=== PATIENT | female | born 1970 | race American Indian/Alaskan Native ===

== ENCOUNTER 2017-12-02 07:46 | Emergency (ER) | payer BC ==
[2017-12-02 08:22] LABS: Basophils % (Auto) 0.1 % (0.0-1.8); Hematocrit 41.5 % (30.3-42.9); Hemoglobin 13.5 gm/dl (10.1-14.3); Lymphocytes # (Auto) 1.1 K/mm3 (1.2-5.4); Lymphocytes % (Auto) 8.7 % (13.4-35.0); Mean Corpuscular HGB Conc 33 % (30-34); Mean Corpuscular Hemoglobin 27 pg (28-32); Mean Corpuscular Volume 82 fl (79-97); Monocytes % (Auto) 7.8 % (0.0-7.3); Platelet Count 320 K/mm3 (140-440); Red Blood Count 5.06 M/mm3 (3.65-5.03); Red Cell Distribution Width 15.1 % (13.2-15.2)
[2017-12-02 08:36] LABS: Alanine Aminotransferase 12 units/L (7-56); Albumin 4.3 g/dL (3.9-5); BUN/Creatinine Ratio 20; Blood Urea Nitrogen 20 mg/dL (7-17); Calcium 10.2 mg/dL (8.4-10.2); Hemolysis Index 11; Lipase 26 units/L (13-60)
[2017-12-02] MEDS ORDERED: LOMOTIL PO ONE (10:28)
[2017-12-02] MEDS ORDERED: NACL 0.9% 1000 ML 1,000 ML IV ONE ×2 (10:29→14:00)
--- NOTE | 2017-12-02 11:45 | Cat Scan Report ---
CT ABDOMEN PELVIS WITH CONTRAST: HISTORY: Right lower quadrant abdominal pain. COMPARISON: none. TECHNIQUE: Helical CT in 1.25mm intervals following IV contrast. Sagittal and coronal reconstructions. FINDINGS: Lung bases: Normal. Liver: Normal. Biliary system: Multiple small calcified gallstones are identified. No biliary dilatation or inflammation. Pancreas: Normal. Spleen: Normal. Kidneys/ureters/bladder: Normal. Adrenal glands: Normal. Aorta: Normal. Intestines: Bowel loops are nondilated but fluid filled. This may represent gastroenteritis. No focal inflammation is identified. Appendix: Normal. Pelvic viscera: The uterus is small in size or hysterectomy has been performed. No adnexal cyst or mass is identified. Ascites: Small to medium pelvic ascites. Adenopathy: None. Musculoskeletal: Normal. IMPRESSION: Normal appendix. No clear explanation for right lower quadrant abdominal pain. Fluid-filled bowel loops which could be related to gastroenteritis. Cholelithiasis. Small pelvic ascites.
[2017-12-02 13:01] VITALS: BP 110/71
[2017-12-02] MEDS ORDERED: ZOFRAN IV ONE (14:05)
--- NOTE | 2017-12-02 14:23 | Emergency Department Report ---
HPI - General Chief Complaint: Abdominal Pain Time Seen by Provider: 12/02/17 10:28 ED Past Medical Hx - Past Medical History Previous Medical History?: Yes Hx GERD: Yes Additional medical history: stomach ulcers - Surgical History Past Surgical History?: Yes Additional Surgical History: Myomectomy, Tubaligation and partial hysterectomy - Social History Smoking Status: Former Smoker - Medications Home Medications: Home Medications Medication Instructions Recorded Confirmed Last Taken Type Dicyclomine HCl 20 mg PO BID #30 tablet 12/02/17 Unknown Rx Diphenoxylate/Atropine [Lomotil] 1 tab PO Q4H PRN #20 tablet 12/02/17 Unknown Rx Promethazine [Phenergan TAB] 25 mg PO Q8HR PRN 10 Days #20 tab 12/02/17 Unknown Rx ED Review of Systems ROS: Stated complaint: N/V/D Other details as noted in HPI Physical Exam - Physical Exam Vital Signs: Vital Signs 12/02/17 12/02/17 12/02/17 07:55 08:09 08:10 Temperature 97.8 F Pulse Rate 110 H 90 82 Respiratory 20 17 19 Rate Blood Pressure 116/76 O2 Sat by Pulse 100 98 Oximetry 12/02/17 12/02/17 12/02/17 08:20 08:30 08:41 Temperature 98 F Pulse Rate 88 84 Respiratory 16 24 14 Rate Blood Pressure 106/72 112/73 O2 Sat by Pulse 97 99 Oximetry 12/02/17 12/02/17 12/02/17 08:45 09:00 09:10 Temperature Pulse Rate 98 H 91 H 90 Respiratory 22 23 19 Rate Blood Pressure 116/81 118/79 118/79 O2 Sat by Pulse 100 Oximetry 12/02/17 12/02/17 12/02/17 09:20 09:30 11:03 Temperature Pulse Rate 91 H 97 H 86 Respiratory 23 20 22 Rate Blood Pressure 121/82 105/73 113/66 O2 Sat by Pulse 98 98 Oximetry 12/02/17 12/02/17 12/02/17 11:06 11:26 11:28 Temperature Pulse Rate 82 77 84 Respiratory 16 14 26 H Rate Blood Pressure 113/66 113/66 113/66 O2 Sat by Pulse Oximetry 12/02/17 12/02/17 12/02/17 11:30 11:32 11:34 Temperature Pulse Rate 89 81 79 Respiratory 13 19 15 Rate Blood Pressure 113/66 105/66 105/66 O2 Sat by Pulse Oximetry 12/02/17 12/02/17 12/02/17 11:36 11:38 11:40 Temperature Pulse Rate 74 79 73 Respiratory 12 13 17 Rate Blood Pressure 105/66 105/66 105/66 O2 Sat by Pulse Oximetry 12/02/17 12/02/17 12/02/17 11:42 11:44 11:46 Temperature Pulse Rate 73 76 72 Respiratory 15 16 13 Rate Blood Pressure 105/66 105/73 115/74 O2 Sat by Pulse Oximetry 12/02/17 12/02/17 12/02/17 11:48 11:50 11:52 Temperature Pulse Rate 80 74 74 Respiratory 20 20 22 Rate Blood Pressure 115/74 115/74 115/74 O2 Sat by Pulse Oximetry 12/02/17 12/02/17 12/02/17 11:54 11:56 11:58 Temperature Pulse Rate 76 69 71 Respiratory 20 19 21 Rate Blood Pressure 113/66 113/66 113/66 O2 Sat by Pulse Oximetry 12/02/17 12/02/17 12/02/17 12:00 12:02 12:04 Temperature Pulse Rate 72 68 77 Respiratory 21 20 19 Rate Blood Pressure 129/82 129/82 129/82 O2 Sat by Pulse Oximetry 12/02/17 12/02/17 12/02/17 12:06 12:08 12:10 Temperature Pulse Rate 75 72 78 Respiratory 19 19 20 Rate Blood Pressure 129/82 129/82 129/82 O2 Sat by Pulse Oximetry 12/02/17 12/02/17 12/02/17 12:12 12:14 12:16 Temperature Pulse Rate 76 73 74 Respiratory 18 21 19 Rate Blood Pressure 129/82 129/82 127/82 O2 Sat by Pulse Oximetry 12/02/17 12/02/17 12/02/17 12:18 12:20 12:22 Temperature Pulse Rate 83 75 79 Respiratory 19 15 19 Rate Blood Pressure 127/82 127/82 127/82 O2 Sat by Pulse Oximetry 12/02/17 12/02/17 12/02/17 12:24 12:26 12:30 Temperature Pulse Rate 72 68 84 Respiratory 13 18 17 Rate Blood Pressure 127/82 127/82 120/81 O2 Sat by Pulse Oximetry 12/02/17 12/02/17 12/02/17 12:36 12:40 12:45 Temperature Pulse Rate 69 102 H 68 Respiratory 21 19 18 Rate Blood Pressure 120/81 120/81 110/71 O2 Sat by Pulse Oximetry 12/02/17 12/02/17 12:50 12:56 Temperature Pulse Rate 70 70 Respiratory 17 11 L Rate Blood Pressure 110/71 110/71 O2 Sat by Pulse Oximetry Physical Exam: - Physical Exam Physical Exam: - General Limitations: No Limitations General appearance: alert, in no apparent distress, obese - Head Head exam: Present: atraumatic, normocephalic - Eye Eye exam: Present: normal appearance - ENT ENT exam: Present: mucous membranes moist - Neck Neck exam: Present: normal inspection - Respiratory Respiratory exam: Present: normal lung sounds bilaterally. Absent: respiratory distress - Cardiovascular Cardiovascular Exam: Present: normal rhythm, tachycardia. Absent: systolic murmur, diastolic murmur, rubs, gallop - GI/Abdominal GI/Abdominal exam: Present: soft, normal bowel sounds - Extremities Exam Extremities exam: Present: normal inspection - Back Exam Back exam: Present: normal inspection - Neurological Exam Neurological exam: Present: alert, oriented X3 - Psychiatric Psychiatric exam: normal affect and mood - Skin Skin exam: Present: warm, dry, intact, normal color. Absent: rash ED Course Vital Signs 12/02/17 12/02/17 12/02/17 07:55 08:09 08:10 Temperature 97.8 F Pulse Rate 110 H 90 82 Respiratory 20 17 19 Rate Blood Pressure 116/76 O2 Sat by Pulse 100 98 Oximetry 12/02/17 12/02/17 12/02/17 08:20 08:30 08:41 Temperature 98 F Pulse Rate 88 84 Respiratory 16 24 14 Rate Blood Pressure 106/72 112/73 O2 Sat by Pulse 97 99 Oximetry 12/02/17 12/02/17 12/02/17 08:45 09:00 09:10 Temperature Pulse Rate 98 H 91 H 90 Respiratory 22 23 19 Rate Blood Pressure 116/81 118/79 118/79 O2 Sat by Pulse 100 Oximetry 12/02/17 12/02/17 12/02/17 09:20 09:30 11:03 Temperature Pulse Rate 91 H 97 H 86 Respiratory 23 20 22 Rate Blood Pressure 121/82 105/73 113/66 O2 Sat by Pulse 98 98 Oximetry 12/02/17 12/02/17 12/02/17 11:06 11:26 11:28 Temperature Pulse Rate 82 77 84 Respiratory 16 14 26 H Rate Blood Pressure 113/66 113/66 113/66 O2 Sat by Pulse Oximetry 12/02/17 12/02/17 12/02/17 11:30 11:32 11:34 Temperature Pulse Rate 89 81 79 Respiratory 13 19 15 Rate Blood Pressure 113/66 105/66 105/66 O2 Sat by Pulse Oximetry 12/02/17 12/02/17 12/02/17 11:36 11:38 11:40 Temperature Pulse Rate 74 79 73 Respiratory 12 13 17 Rate Blood Pressure 105/66 105/66 105/66 O2 Sat by Pulse Oximetry 12/02/17 12/02/17 12/02/17 11:42 11:44 11:46 Temperature Pulse Rate 73 76 72 Respiratory 15 16 13 Rate Blood Pressure 105/66 105/73 115/74 O2 Sat by Pulse Oximetry 12/02/17 12/02/17 12/02/17 11:48 11:50 11:52 Temperature Pulse Rate 80 74 74 Respiratory 20 20 22 Rate Blood Pressure 115/74 115/74 115/74 O2 Sat by Pulse Oximetry 12/02/17 12/02/17 12/02/17 11:54 11:56 11:58 Temperature Pulse Rate 76 69 71 Respiratory 20 19 21 Rate Blood Pressure 113/66 113/66 113/66 O2 Sat by Pulse Oximetry 12/02/17 12/02/17 12/02/17 12:00 12:02 12:04 Temperature Pulse Rate 72 68 77 Respiratory 21 20 19 Rate Blood Pressure 129/82 129/82 129/82 O2 Sat by Pulse Oximetry 12/02/17 12/02/17 12/02/17 12:06 12:08 12:10 Temperature Pulse Rate 75 72 78 Respiratory 19 19 20 Rate Blood Pressure 129/82 129/82 129/82 O2 Sat by Pulse Oximetry 12/02/17 12/02/17 12/02/17 12:12 12:14 12:16 Temperature Pulse Rate 76 73 74 Respiratory 18 21 19 Rate Blood Pressure 129/82 129/82 127/82 O2 Sat by Pulse Oximetry 12/02/17 12/02/17 12/02/17 12:18 12:20 12:22 Temperature Pulse Rate 83 75 79 Respiratory 19 15 19 Rate Blood Pressure 127/82 127/82 127/82 O2 Sat by Pulse Oximetry 12/02/17 12/02/17 12/02/17 12:24 12:26 12:30 Temperature Pulse Rate 72 68 84 Respiratory 13 18 17 Rate Blood Pressure 127/82 127/82 120/81 O2 Sat by Pulse Oximetry 12/02/17 12/02/17 12/02/17 12:36 12:40 12:45 Temperature Pulse Rate 69 102 H 68 Respiratory 21 19 18 Rate Blood Pressure 120/81 120/81 110/71 O2 Sat by Pulse Oximetry 12/02/17 12/02/17 12:50 12:56 Temperature Pulse Rate 70 70 Respiratory 17 11 L Rate Blood Pressure 110/71 110/71 O2 Sat by Pulse Oximetry ED Medical Decision Making - Lab Data Result diagrams: 12/02/17 08:01 12/02/17 08:01 Critical care attestation.: If time is entered above; I have spent that time in minutes in the direct care of this critically ill patient, excluding procedure time. ED Disposition Clinical Impression: Gastroenteritis Disposition: DC-01 TO HOME OR SELFCARE Is pt being admited?: No Does the pt Need Aspirin: No Condition: Stable Instructions: Abdominal Pain (ED), Gastroenteritis (ED) Prescriptions: Dicyclomine HCl 20 mg PO BID #30 tablet Diphenoxylate/Atropine [Lomotil] 1 tab PO Q4H PRN #20 tablet PRN Reason: Diarrhea Promethazine [Phenergan TAB] 25 mg PO Q8HR PRN 10 Days #20 tab PRN Reason: Nausea Referrals: PRIMARY CARE, [Primary Care Provider] - 3-5 Days
== END 2017-12-02 15:18 | disposition home or self-care (01) ==
LOC: ED 07:46
DX: K52.9 Noninfective gastroenteritis and colitis, unspecified (principal); K21.9 Gastro-esophageal reflux disease without esophagitis; Z98.51 Tubal ligation status; Z90.710 Acquired absence of both cervix and uterus; Z87.891 Personal history of nicotine dependence
CPT/HCPCS: 36415; 74177; 80053; 83690; 84703; 85025; 96361; 96374; 99284; J2405; J7030; Q9967